=== PATIENT | male | born 1940 | race Caucasian/White ===

== ENCOUNTER 2017-09-06 07:34 | Day surgery (SDC) | payer MEDICARE, OTHER ==
[~2017-09-06 07:34] MED LIST: Cefuroxime 10 MG/ML SYRINGE EYELF SCH; Lidocaine 1% PF 2 ML SDV INJECT SCH; Pilocarpine 4% Ophth Soln 15 ML Bot EYELF SCH
[2017-09-06] MEDS: Polymyxin B/Trimethoprim 10 ML Bottle EYELF SCH ×3 (07:50→09:43)
[2017-09-06] MEDS: Brimonidine 0.2% Ophth Soln 5 ML Bottle EYELF SCH ×3 (07:55→09:43)
--- NOTE | 2017-09-06 07:55 | PCM.PREANE ---
Preanesthetic Assessment - Anesthesia/Transfusion/Family Hx Anesthesia History: Prior Anesthesia Without Reaction Family History of Anesthesia Reaction: No Transfusion History: No Prior Transfusion(s) - Review of Systems General: No Symptoms, Other (high cholesterol) Pulmonary: No Symptoms Cardiovascular: Other (HTN) Gastrointestinal: No Symptoms Neurological: No Symptoms Other: Reports: None - Physical Assessment NPO Status Date: 09/05/17 NPO Status Time: 22:00 Pulse: 62 O2 Sat by Pulse Oximetry: 98 Respiratory Rate: 16 Blood Pressure: 124/62 Weight: 1.179 kg ASA Class: 2 Mental Status: Alert & Oriented x3 Airway Class: Mallampati = 2 Dentition: Reports: Normal Dentition Thyro-Mental Finger Breadths: 3 Mouth Opening Finger Breadths: 3 ROM/Head Extension: Full Lungs: Clear to Auscultation, Normal Respiratory Effort Cardiovascular: Regular Rate, Regular Rhythm - Allergies Allergies/Adverse Reactions: Allergies Allergy/AdvReac Type Severity Reaction Status Date / Time No Known Allergies Allergy Verified 09/05/17 13:47 - Blood Blood Available: No Product(s) Available: None - Anesthesia Plan Pre-Op Medication Ordered: None - Acknowledgements Anesthesia Type Planned: MAC Pt an Appropriate Candidate for the Planned Anesthesia: Yes Alternatives and Risks of Anesthesia Discussed w Pt/Guardian: Yes Pt/Guardian Understands and Agrees with Anesthesia Plan: Yes PreAnesthesia Questionnaire - HOME MEDS Home Medications: Home Meds Allopurinol [Zyloprim] 300 mg PO DAILY 09/05/17 [History] Aspirin [Adult Low Dose Aspirin EC] 81 mg PO DAILY 09/05/17 [History] Enalapril Maleate 5 mg PO DAILY 09/05/17 [History] Pravastatin Sodium [Pravastatin (Pravachol)] 40 mg PO DAILY 09/05/17 [History] amLODIPine Besylate [Amlodipine Besylate] 5 mg PO DAILY 09/05/17 [History] - CURRENT (IN HOUSE) MEDS Current Meds: Current Medications Brimonidine Tartrate (Alphagan 0.2% Oph Soln) 0 ml EYELF ASDIRECTED ERICH Stop: 09/06/17 18:00 Cefuroxime Sodium (Zinacef) 0 mg EYELF ASDIRECTED ERICH Stop: 09/06/17 18:00 Lidocaine HCl (Xylocaine-Mpf 1%) 0 ml INJECT ASDIRECTED ERICH Stop: 09/06/17 18:00 Phenylephrine HCl (Van-Synephrine 2.5% Ophth Soln) 0 ml EYELF ASDIRECTED ERICH Stop: 09/06/17 18:00 Pilocarpine HCl (Pilocar 4% Ophth Soln) 0 ml EYELF ASDIRECTED ERICH Stop: 09/06/17 18:00 Polymyxin/Trimethoprim Sulfate (Polytrim Ophth Soln) 0 ml EYELF ASDIRECTED ERICH Stop: 09/06/17 18:00 Tetracaine HCl (Tetracaine 0.5% Steri-Unit Natali) 0 ml EYELF ASDIRECTED ERICH Stop: 09/06/17 18:00 Tropicamide (Mydriacyl 1% Ophth Soln) 0 ml EYELF ASDIRECTED ERICH Stop: 09/06/17 18:00
[2017-09-06] MEDS: Phenylephrine 2.5% Ophth Soln 2 ML Bot EYELF SCH ×5 (08:00→09:22)
[2017-09-06] MEDS: Tropicamide 1% Ophth Soln 3 ML Bottle EYELF SCH ×4 (08:05→08:59)
[2017-09-06] MEDS: Tetracaine HCl/PF 0.5% 4 ML Bottle EYELF SCH ×2 (09:11→09:30)
--- NOTE | 2017-09-06 09:45 | PCM48HPAN ---
Post Anesthesia Note - EVALUATION WITHIN 48HRS OF ANESTHETIC Vital Signs in Normal Range: Yes Patient Participated in Evaluation: Yes Respiratory Function Stable: Yes Airway Patent: Yes Cardiovascular Function Stable: Yes Hydration Status Stable: Yes Pain Control Satisfactory: Yes Nausea and Vomiting Control Satisfactory: Yes Mental Status Recovered: Yes Pulse Rate: 58 SaO2: 98 Resp Rate: 15 Blood Pressure: 127/69
== END 2017-09-06 09:55 | disposition home or self-care (01) ==
LOC: JD.SDS 07:34
PROVIDERS: ATTEND Ophthalmology
DX: H25.813 Combined forms of age-related cataract, bilateral (principal); I10 Essential (primary) hypertension; E78.00 Pure hypercholesterolemia, unspecified; H35.371 Puckering of macula, right eye; H43.813 Vitreous degeneration, bilateral; H16.223 Keratoconjunctivitis sicca, not specified as Sjogren's, bilateral; H16.103 Unspecified superficial keratitis, bilateral; H02.831 Dermatochalasis of right upper eyelid; H02.834 Dermatochalasis of left upper eyelid; Z87.891 Personal history of nicotine dependence; Z79.82 Long term (current) use of aspirin; Z79.899 Other long term (current) drug therapy
CPT/HCPCS: 66984; C1780; J0697; A9270-GY; J2001

== ENCOUNTER 2017-10-11 09:05 | Day surgery (SDC) | payer MEDICARE, OTHER ==
[~2017-10-11 09:05] MED LIST changes: -Cefuroxime 10 MG/ML SYRINGE EYELF SCH; +Cefuroxime 10 MG/ML SYRINGE EYERT SCH; -Pilocarpine 4% Ophth Soln 15 ML Bot EYELF SCH; +Pilocarpine 4% Ophth Soln 15 ML Bot EYERT SCH
[2017-10-11] MEDS: Polymyxin B/Trimethoprim 10 ML Bottle EYERT SCH ×3 (10:09→11:45)
--- NOTE | 2017-10-11 10:09 | PCM.PREANE ---
Preanesthetic Assessment - Anesthesia/Transfusion/Family Hx Anesthesia History: Prior Anesthesia Without Reaction Transfusion History: No Prior Transfusion(s) - Review of Systems General: No Symptoms Pulmonary: No Symptoms Cardiovascular: No Symptoms Gastrointestinal: No Symptoms Neurological: No Symptoms Other: Reports: None - Physical Assessment NPO Status Date: 10/10/17 NPO Status Time: 21:00 ASA Class: 2 Mental Status: Alert & Oriented x3 Airway Class: Mallampati = 1 Dentition: Reports: Normal Dentition Thyro-Mental Finger Breadths: 3 Mouth Opening Finger Breadths: 3 ROM/Head Extension: Full Lungs: Clear to Auscultation - Allergies Allergies/Adverse Reactions: Allergies Allergy/AdvReac Type Severity Reaction Status Date / Time No Known Allergies Allergy Verified 10/10/17 12:55 - Acknowledgements Anesthesia Type Planned: MAC Pt an Appropriate Candidate for the Planned Anesthesia: Yes Alternatives and Risks of Anesthesia Discussed w Pt/Guardian: Yes Pt/Guardian Understands and Agrees with Anesthesia Plan: Yes PreAnesthesia Questionnaire Cardiovascular History: Reports: High Cholesterol, Hypertension, [place] (>10 years ago, no symptoms, METS>>4) Genitourinary History: Reports: Renal Calculus - Past Surgical History HEENT Surgical History: Reports: Cataract Surgery Cardiovascular Surgical History: Reports: Other (See Below) (Stents) Neurological Surgical History: Reports: Laminectomy, Lumbar Spine, Spinal Fusion - HOME MEDS Home Medications: Home Meds Allopurinol [Zyloprim] 300 mg PO DAILY 09/05/17 [History] Aspirin [Adult Low Dose Aspirin EC] 81 mg PO DAILY 09/05/17 [History] Enalapril Maleate 5 mg PO DAILY 09/05/17 [History] Pravastatin Sodium [Pravastatin (Pravachol)] 40 mg PO DAILY 09/05/17 [History] amLODIPine Besylate [Amlodipine Besylate] 5 mg PO DAILY 09/05/17 [History] - CURRENT (IN HOUSE) MEDS Current Meds: Current Medications Brimonidine Tartrate (Alphagan 0.2% Oph Soln) 0 ml EYERT ASDIRECTED ERICH Stop: 10/11/17 18:00 Cefuroxime Sodium (Zinacef) 0 mg EYERT ASDIRECTED ERICH Stop: 10/11/17 18:00 Lidocaine HCl (Xylocaine-Mpf 1%) 0 ml INJECT ASDIRECTED ERICH Stop: 10/11/17 18:00 Phenylephrine HCl (Van-Synephrine 2.5% Ophth Soln) 0 ml EYERT ASDIRECTED ERICH Stop: 10/11/17 18:00 Pilocarpine HCl (Pilocar 4% Ophth Soln) 0 ml EYERT ASDIRECTED ERICH Stop: 10/11/17 18:00 Polymyxin/Trimethoprim Sulfate (Polytrim Ophth Soln) 0 ml EYERT ASDIRECTED ERICH Stop: 10/11/17 18:00 Tetracaine HCl (Tetracaine 0.5% Steri-Unit Natali) 0 ml EYERT ASDIRECTED ERICH Stop: 10/11/17 18:00 Tropicamide (Mydriacyl 1% Ophth Soln) 0 ml EYERT ASDIRECTED ERICH Stop: 10/11/17 18:00
[2017-10-11] MEDS: Brimonidine 0.2% Ophth Soln 5 ML Bottle EYERT SCH ×3 (10:15→11:45)
[2017-10-11] MEDS: Tropicamide 1% Ophth Soln 15 ML Bottle EYERT SCH ×4 (10:22→11:11)
[2017-10-11] MEDS: Phenylephrine 2.5% Ophth Soln 2 ML Bot EYERT SCH ×5 (10:26→11:30)
[2017-10-11] MEDS: Tetracaine HCl/PF 0.5% 4 ML Bottle EYERT SCH ×2 (11:17→11:42)
== END 2017-10-11 11:58 | disposition home or self-care (01) ==
LOC: JD.SDS 09:05
PROVIDERS: ATTEND Ophthalmology
DX: H25.811 Combined forms of age-related cataract, right eye (principal); H35.371 Puckering of macula, right eye; H02.831 Dermatochalasis of right upper eyelid; H02.834 Dermatochalasis of left upper eyelid; E78.00 Pure hypercholesterolemia, unspecified; I10 Essential (primary) hypertension; I25.2 Old myocardial infarction; Z79.82 Long term (current) use of aspirin; Z79.899 Other long term (current) drug therapy; Z98.42 Cataract extraction status, left eye; Z96.1 Presence of intraocular lens
CPT/HCPCS: 66984; C1780; J0697; A9270-GY; J2001

== ENCOUNTER 2017-11-02 08:25 | Emergency (ER) | payer MEDICARE, OTHER ==
[2017-11-02] MEDS ORDERED: Sodium Chloride 0.9% 10 ML Syringe FLUSH PRN (08:45)
[2017-11-02] MEDS ORDERED: Sodium Chloride 0.9% 1,000 ML IV SCH (08:45)
--- NOTE | 2017-11-02 10:09 | CT ---
CT abdomen and pelvis Technique: Multiple axial sections were obtained from above the dome of the diaphragm inferiorly through the pubic symphysis. Intravenous and oral contrast was not utilized. Comparison: No prior CT abdomen or pelvis exam. Findings: Kidneys show no hydronephrosis. Cyst is seen within the left kidney measuring approximately 2.2 cm. Ureters show no dilatation. No abnormal calcifications are seen along the course of the ureters. Visualized lung bases show nothing acute. Noncontrast appearance of the liver is within normal limits. Spleen also appears within normal limits. Multiple small calcified gallstones seen within the gallbladder. Adrenal glands on the left side show a small nodule measuring about 1.1 cm most likely due to incidental adenoma. Pancreas is within normal limits. Aorta shows atherosclerotic calcification which continues into the iliac vessels without aneurysm. No retroperitoneal adenopathy is seen. No pelvic mass or adenopathy is seen. Radiation implant seeds are noted within the prostate gland. Appendix is seen which is normal in size. Bone window settings were reviewed which shows scattered degenerative change within the spine. No bowel dilatation is seen. Incidental diverticuli are seen within the descending colon without findings of diverticulitis. Impression: 1. No renal calculi, ureteral dilatation or ureteral stone is seen. 2. Appendix is seen and is normal in size. 3. Calcified gallstones. Other incidental findings. Nothing acute is identified on noncontrast CT study of the abdomen and pelvis. Diagnostic code #2
[2017-11-02] MEDS ORDERED: Ketorolac 30 MG/ML SDV IVPUSH ONE (10:28)
[2017-11-02] MEDS ORDERED: HYDROmorphone 0.5 MG/0.5 ML SYRINGE IVPUSH ONE (10:28)
--- NOTE | 2017-11-02 11:38 | EDM.PDOC ---
ED HPI GENERAL MEDICAL PROBLEM - General Chief Complaint: Abdominal Pain Stated Complaint: LOW ABD PAIN AND KIDNEY PAIN Time Seen by Provider: 11/02/17 08:39 Source of Information: Reports: Patient, Family History Limitations: Reports: No Limitations - History of Present Illness INITIAL COMMENTS - FREE TEXT/NARRATIVE: The patient presents with right lower abdominal pain and right lower back pain. The patient has a history of kidney stones. He is concerned this may be another stone. He has no nausea, vomiting, fever, chills, cough, dysuria or hematuria. He has no chest pain or shortness of breath. Onset: Gradual Duration: Day(s): Location: Reports: Abdomen, Back Quality: Reports: Sharp Severity: Severe Improves with: Reports: None Worsens with: Reports: None Associated Symptoms: Denies: Chest Pain, Fever/Chills, Headaches, Nausea/ Vomiting, Shortness of Breath Right Lower Abdominal Pain Score (Numeric/FACES): 6 - Related Data Allergies Allergy/AdvReac Type Severity Reaction Status Date / Time No Known Allergies Allergy Verified 10/10/17 12:55 Home Meds: Home Meds Allopurinol [Zyloprim] 300 mg PO DAILY 09/05/17 [History] Aspirin [Adult Low Dose Aspirin EC] 81 mg PO DAILY 09/05/17 [History] Enalapril Maleate 5 mg PO DAILY 09/05/17 [History] Pravastatin Sodium [Pravastatin (Pravachol)] 40 mg PO DAILY 09/05/17 [History] amLODIPine Besylate [Amlodipine Besylate] 5 mg PO DAILY 09/05/17 [History] Hydrocodone/Acetaminophen [Hydrocodon-Acetaminophen 5-325] 1 - 2 each PO Q6HR PRN #20 tablet 11/02/17 [Rx] Orphenadrine [Norflex] 100 mg PO BID PRN #20 tab 11/02/17 [Rx] Past Medical History Cardiovascular History: Reports: High Cholesterol, Hypertension, [place] Genitourinary History: Reports: Renal Calculus Other Genitourinary History: x30 kidney stones - Past Surgical History HEENT Surgical History: Reports: Cataract Surgery Cardiovascular Surgical History: Reports: Other (See Below) Neurological Surgical History: Reports: Laminectomy, Lumbar Spine, Spinal Fusion Social & Family History - Tobacco Use Smoking Status *Q: Former Smoker Used Tobacco, but Quit: Yes Month/Year Tobacco Last Used: 1969 - Caffeine Use Caffeine Use: Reports: Coffee - Recreational Drug Use Recreational Drug Use: No ED ROS GENERAL - Review of Systems Review Of Systems: See Below Constitutional: Reports: No Symptoms HEENT: Reports: No Symptoms Respiratory: Reports: No Symptoms Cardiovascular: Reports: No Symptoms Endocrine: Reports: No Symptoms GI/Abdominal: Reports: Abdominal Pain. Denies: Diarrhea, Nausea, Vomiting : Reports: No Symptoms Musculoskeletal: Reports: Back Pain Skin: Reports: No Symptoms Neurological: Reports: No Symptoms ED EXAM, GI/ABD - Physical Exam Exam: See Below Exam Limited By: No Limitations General Appearance: Alert, No Apparent Distress Ears: Normal External Exam Nose: Normal Inspection Head: Atraumatic, Normocephalic Neck: Normal Inspection Respiratory/Chest: No Respiratory Distress, Lungs Clear, Normal Breath Sounds Cardiovascular: Regular Rate, Rhythm, No Edema, No Murmur GI/Abdominal Exam: Soft, Non-Tender, No Organomegaly, No Mass Back Exam: No: CVA Tenderness (L), CVA Tenderness (R), Muscle Spasm Extremities: Normal Inspection Course - Vital Signs Last Recorded V/S: Last Vital Signs Temp 97.1 F 11/02/17 08:31 Pulse 62 11/02/17 08:31 Resp 20 11/02/17 08:31 BP 168/89 H 11/02/17 08:31 Pulse Ox 97 11/02/17 08:31 - Orders/Labs/Meds Orders: Active Orders 24 hr Category Date Time Status Peripheral IV Care [RC] . DIRECTED Care 11/02/17 08:45 Active Sodium Chloride 0.9% [Normal Saline] 1,000 ml Med 11/02/17 08:45 Active IV ASDIRECTED Sodium Chloride 0.9% [Saline Flush] Med 11/02/17 08:45 Active 10 ml FLUSH ASDIRECTED PRN Peripheral IV Insertion Adult [OM.PC] Stat Oth 11/02/17 08:45 Ordered Medication Orders Sodium Chloride (Normal Saline) 1,000 mls @ 125 mls/hr IV ASDIRECTED ERICH Last Admin: 11/02/17 08:55 Dose: 125 mls/hr Sodium Chloride (Saline Flush) 10 ml FLUSH ASDIRECTED PRN PRN Reason: Keep Vein Open Last Admin: 11/02/17 08:57 Dose: 10 ml Labs: Laboratory Tests 11/02/17 11/02/17 11/02/17 Range/Units 08:35 08:35 09:21 WBC 9.26 H (4.23-9.07) K/mm3 RBC 5.01 (4.63-6.08) M/mm3 Hgb 15.7 (13.7-17.5) gm/L Hct 46.9 (40.1-51.0) % MCV 93.6 H (79.0-92.2) fl MCH 31.3 (25.7-32.2) pg MCHC 33.5 (32.2-35.5) g/dl RDW Std Deviation 48.6 H (35.1-43.9) fL Plt Count 246 (163-337) K/mm3 MPV 9.8 (9.4-12.3) fl Neut % (Auto) 65.2 (34.0-67.9) % Lymph % (Auto) 24.7 (21.8-53.1) % [place] % (Auto) 8.2 (5.3-12.2) % Eos % (Auto) 1.2 (0.8-7.0) Baso % (Auto) 0.4 (0.1-1.2) % Neut # (Auto) 6.03 H (1.78-5.38) K/mm3 Lymph # (Auto) 2.29 (1.32-3.57) K/mm3 [place] # (Auto) 0.76 (0.30-0.82) K/mm3 Eos # (Auto) 0.11 (0.04-0.54) K/mm3 Baso # (Auto) 0.04 (0.01-0.08) K/mm3 Sodium 141 (136-145) mEq/L Potassium 3.9 (3.5-5.1) mEq/L Chloride 107 (98-107) mEq/L Carbon Dioxide 22 (21-32) mEq/L Anion Gap 15.9 H (5-15) BUN 18 (7-18) mg/dL Creatinine 0.7 (0.7-1.3) mg/dL Est Cr Clr Drug Dosing 98.54 mL/min Estimated GFR (MDRD) > 60 (>60) mL/min BUN/Creatinine Ratio 25.7 H (14-18) Glucose 102 (83-115) mg/dL Calcium 9.0 (8.5-10.1) mg/dL Total Bilirubin 0.7 (0.2-1.0) mg/dL AST 18 (15-37) U/L ALT 18 (16-63) U/L Alkaline Phosphatase 79 (46-116) U/L Total Protein 6.9 (6.4-8.2) g/dl Albumin 3.9 (3.4-5.0) g/dl Globulin 3.0 gm/dL Albumin/Globulin Ratio 1.3 (1-2) Lipase 187 (73-393) U/L Urine Color Yellow (Yellow) Urine Appearance Clear (Clear) Urine pH 6.5 (5.0-8.0) Ur Specific [place] 1.020 (1.005-1.030) Urine Protein Negative (Negative) Urine Glucose (UA) Negative (Negative) Urine Ketones Negative (Negative) Urine Occult Blood Negative (Negative) Urine Nitrite Negative (Negative) Urine Bilirubin Negative (Negative) Urine Urobilinogen 0.2 (0.2-1.0) Ur Leukocyte Esterase Negative (Negative) Urine RBC Not seen (0-5) /hpf Urine WBC 0-5 (0-5) /hpf Ur Epithelial Cells Not seen (0-5) /hpf Urine Bacteria Few (FEW) /hpf Urine Mucus Few (FEW) /hpf Meds: Medications Generic Name Dose Route Start Last Admin Trade Name Frekaushik PRN Reason Stop Dose Admin Sodium Chloride 1,000 mls @ 125 mls/hr 11/02/17 08:45 11/02/17 08:55 Normal Saline IV 125 mls/hr ASDIRECTED ERICH Administration Sodium Chloride 10 ml 11/02/17 08:45 11/02/17 08:57 Saline Flush FLUSH 10 ml ASDIRECTED PRN Administration Keep Vein Open Discontinued Medications Generic Name Dose Route Start Last Admin Trade Name Freq PRN Reason Stop Dose Admin Hydromorphone HCl 0.5 mg 11/02/17 10:28 11/02/17 10:40 Dilaudid IVPUSH 11/02/17 10:29 0.5 mg ONETIME ONE Administration Ketorolac Tromethamine 30 mg 11/02/17 10:28 11/02/17 10:37 Toradol IVPUSH 11/02/17 10:29 30 mg ONETIME ONE Administration - Re-Assessments/Exams Free Text/Narrative Re-Assessment/Exam: 11/02/17 11:38 I ordered an IV, labs, UA and a CT of his abdomen and pelvis without contrast. 11/02/17 11:38 His WBC was elevated at 9.26. His CMP looks good. His lipase was normal. His UA shows no UTI. His CT shows no renal calculi, ureteral dilatation or ureteral stone is seen. Appendix is seen and is normal in size. Calcified gallstones. Other incidental findings. Nothing acute is identifies on noncontrast CT study of the abdomen and pelvis. He still has the pain so ordered toradol and dilaudid for pain. I think this may be coming from his back. I will get him on some norflex and hydrocodone. Departure - Departure Time of Disposition: 11:45 Disposition: Home, Self-Care 01 Condition: Good Clinical Impression: Right low back pain Qualifiers: Chronicity: acute Sciatica presence: without sciatica Qualified Code(s): M54.5 - Low back pain - Discharge Information *PRESCRIPTION DRUG MONITORING PROGRAM REVIEWED*: No *COPY OF PRESCRIPTION DRUG MONITORING REPORT IN PATIENT SILVINA: No Prescriptions: Hydrocodone/Acetaminophen [Hydrocodon-Acetaminophen 5-325] 1 - 2 each PO Q6HR PRN #20 tablet PRN Reason: Pain Orphenadrine [Norflex] 100 mg PO BID PRN #20 tab PRN Reason: Pain Referrals: Amos Casiano MD [Primary Care Provider] - 2 Weeks Additional Instructions: Take an antiiflammatory such as motrin or aleve. Take the hydrocodone and norflex for pain. Follow up with Dr Casiano when you get home. You may need an MRI of your back. - My Orders Last 24 Hours: My Active Orders 11/02/17 08:45 Peripheral IV Care [RC] . DIRECTED Sodium Chloride 0.9% [Normal Saline] 1,000 ml IV ASDIRECTED Sodium Chloride 0.9% [Saline Flush] 10 ml FLUSH ASDIRECTED PRN Peripheral IV Insertion Adult [OM.PC] Stat - Assessment/Plan Last 24 Hours: My Active Orders 11/02/17 08:45 Peripheral IV Care [RC] . DIRECTED Sodium Chloride 0.9% [Normal Saline] 1,000 ml IV ASDIRECTED Sodium Chloride 0.9% [Saline Flush] 10 ml FLUSH ASDIRECTED PRN Peripheral IV Insertion Adult [OM.PC] Stat
== END 2017-11-02 12:00 | disposition home or self-care (01) ==
LOC: JD.ED 08:25
DX: M54.5 Low back pain (principal); Z79.899 Other long term (current) drug therapy; Z87.891 Personal history of nicotine dependence
CPT/HCPCS: 36415; 74176; 80053; 81001; 83690; 85025; 96361; 96374; 96375; 99284; J1170; J1885; J7040; J7050

== ENCOUNTER 2019-01-20 15:28 | Emergency (ER) | payer MEDICARE, OTHER ==
--- NOTE | 2019-01-20 16:12 | EDM.PDOC ---
ED HPI GENERAL MEDICAL PROBLEM - General Chief Complaint: Head Injury Stated Complaint: HEAD INJURY Time Seen by Provider: 01/20/19 16:07 Source of Information: Reports: Patient, Family () History Limitations: Reports: No Limitations - History of Present Illness INITIAL COMMENTS - FREE TEXT/NARRATIVE: 78-year-old male presents the ED in the accompaniment of his . Patient was working outside carried down in a [employer] tree and getting ready department in the garbage when he slipped on snow-covered ice and fell hard to the concrete. Apparently passersby in a vehicle appreciated him falling and attendant him. It's unclear if he lost consciousness for short period of time or not. Patient has amnesia for the event. Answer the door and the passersby had him up and ready to come into the house. They recognize that he is a hematoma to the left occipital scalp. They found his glasses in the snow as well. It's been 2 hours since the time of injury which is about 1400 hrs. today. He complains bitterly of diffuse low cervical neck pain particularly on the right side at C7-T1 level. He has had previous lumbar spine surgery but denies any pain in his lower back both wrists or mid back. No pain in his ribs. At 3:00 he asked his if he had fallen. I.e. continues to have amnesia for the event. Has a headache mild nausea but no vomiting. Onset: Today Onset Date: 01/20/19 Onset Time: 14:00 Duration: Hour(s): Location: Reports: Head, Neck Quality: Reports: Ache, Throbbing Severity: Moderate Improves with: Reports: Rest Worsens with: Reports: Movement Context: Reports: Trauma (Slipped and fell at ground level on snow-covered ice landing hard on his back and striking the back of his head hard on concrete.). Denies: Activity, Exercise (Activity of the neck.), Lifting, Sick Contact Associated Symptoms: Reports: Confusion (Amnesia for the event.), Headaches, Loss of Appetite, Malaise, Other. Denies: Chest Pain, Cough, cough w sputum, Diaphoresis, Fever/Chills Treatments TAKE OFF MAN: Reports: Other (see below) (None so far.) Bilateral Neck Pain Score (Numeric/FACES): 5 - Related Data Allergies Allergy/AdvReac Type Severity Reaction Status Date / Time No Known Allergies Allergy Verified 01/20/19 15:59 Home Meds: Home Meds Allopurinol [Zyloprim] 300 mg PO DAILY 09/05/17 [History] Aspirin [Adult Low Dose Aspirin EC] 81 mg PO DAILY 09/05/17 [History] Enalapril Maleate 5 mg PO DAILY 09/05/17 [History] Pravastatin Sodium [Pravastatin (Pravachol)] 40 mg PO DAILY 09/05/17 [History] amLODIPine Besylate [Amlodipine Besylate] 5 mg PO DAILY 09/05/17 [History] Orphenadrine [Norflex] 100 mg PO BID PRN #20 tab 11/02/17 [Rx] Past Medical History Cardiovascular History: Reports: High Cholesterol, Hypertension, MA Genitourinary History: Reports: Renal Calculus Other Genitourinary History: x30 kidney stones - Past Surgical History HEENT Surgical History: Reports: Cataract Surgery Cardiovascular Surgical History: Reports: Other (See Below) Neurological Surgical History: Reports: Laminectomy, Lumbar Spine, Spinal Fusion Social & Family History - Caffeine Use Caffeine Use: Reports: Coffee - Living Situation & Occupation Living situation: Reports: Occupation: Retired ED [employer] [facility] - Review of Systems Review Of Systems: See Below Constitutional: Reports: Malaise, Weakness, Fatigue, Decreased Appetite. Denies : Fever, Chills HEENT: Reports: Glasses, Hearing Loss (Mild hearing problems.). Denies: Vertigo Respiratory: Reports: Shortness of Breath. Denies: Wheezing, Pleuritic Chest Pain (On exertion at times), Cough Cardiovascular: Reports: Blood Pressure Problem, Dyspnea on Exertion. Denies: Chest Pain, Claudication, Edema, Lightheadedness, Orthopnea (On medication for hypertension) Endocrine: Reports: Fatigue GI/Abdominal: Reports: Nausea (Mild nausea since hitting his head today.) : Reports: Frequency, Other (Nocturia usually 2) Musculoskeletal: Reports: Neck Pain, Back Pain (Chronic low back pain having had surgery 2.). Denies: Hand Pain, Leg Pain, Foot Pain, Joint Pain, Joint Swelling Skin: Reports: No Symptoms Neurological: Reports: Confusion, Headache (Has amnesia for the event or accident today.), Other. Denies: Numbness, Paresthesia, Pre-Existing Deficit, Seizure, Syncope, Tingling, Tremors, Trouble Speaking, Difficulty Walking, Weakness Psychiatric: Reports: No Symptoms Hematologic/Lymphatic: Reports: No Symptoms Immunologic: Reports: No Symptoms ED EXAM, HEAD INJURY - Physical Exam Exam: See Below Exam Limited By: No Limitations General Appearance: Alert, WD/WN, No Apparent Distress, Other (He does answer appropriately and obeys all commands. Vital signs are normal.) Head: Scalp Swelling (Left occipital scalp mid and superior aspect). No: Active Bleeding, Facial Ecchymosis, Facial Lacerations, Facial Swelling, Sinus Tenderness Nexus Criteria: Posterior, Midline Cervical Tenderness. No: Evidence of Intoxication, Altered Level of Consciousness, Focal Neurological Deficit, Painful Distraction Injuries Eyes: Bilateral Eye: Normal Inspection, PERRL Ears: Normal TMs ([place] hot blood behind the tympanic membranes) Nose: Normal Inspection, Other Throat/Mouth: Normal Inspection, Normal Lips, Normal Teeth, Normal Oropharynx, Other (No injuries to his tonsillar temporomandibular joints.) Neck: Normal Alignment, Normal Inspection, Limited Range of Motion, Muscle Spasm (Left and right lower paracervical muscle tenderness.), Paraspinous Muscle Tender (C6 C7 T1 bilaterally laterally), Tenderness. No: Non-Tender, Full Range of Motion, Spinous Processes Tender, Tender Midline Respiratory: No Respiratory Distress, Lungs Clear, Normal Breath Sounds, Decreased Breath Sounds Cardiovascular: Normal Peripheral Pulses, Regular Rate, Rhythm, No Murmur, No Rub GI/Abdominal Exam: Normal Bowel Sounds, Soft, Non-Tender, No Organomegaly Back Exam: Normal Inspection, Full Range of Motion, Other Extremities: Normal Inspection (Well-healed lumbar spine scar.), Normal Range of Motion, Non-Tender, Other (No evidence of injuries to either wrist elbow) Neurologic: No Motor/Sensory Deficits ( but talks or lower extremities.), Alert , Normal Mood/Affect, Oriented x 3 Skin: Normal Color, Warm/Dry - [place] Coma Score Best Eye Response ([place]): (4) Open Spontaneously Best Verbal Response ([place]): (5) Oriented Best Motor Response ([place]): (6) Obeys Commands [place] Total: 15 Course - Vital Signs Last Recorded V/S: Last Vital Signs Temp 36.8 C 01/20/19 16:00 Pulse 78 01/20/19 16:00 Resp 16 01/20/19 16:00 BP 119/70 01/20/19 16:00 Pulse Ox 98 01/20/19 16:00 - Orders/Labs/Meds Orders: Active Orders 24 hr Category Date Time Status Cervical Spine wo Cont [CT] Stat Exams 01/20/19 16:09 Ordered Head wo Cont [CT] Stat Exams 01/20/19 16:07 Taken - Radiology Interpretation Free Text/Narrative:: 78-year-old male presents the ED after slipping and falling from ground-level outside his home at about 1400 hrs. today. He was tearing down a little [employer] tree in getting ready to throat in the garbage when he slipped on ice and fell landing on concrete surface. Apparently passersby in a vehicle on the roadway seen and fall and got out to aid him. Some clear fluids unresponsive for any period of time. He has a hematoma left occipital scalp and complaining of diffuse cervical neck pain particularly right lower neck. He denies pain in any other areas. His reported that at about 1500 hrs. while seated in the house he started asking questions like that " did I fall" --complaining of headache with mild nausea but no vomiting. He is not on any blood thinners. He denies pain in his lower back where he has had previous surgery 2. He does have pain to palpation both sides of his lower cervical spine. Left scalp hematoma mid superior aspect of the left occiput. Plan CT head CT cervical spine to be done. - Re-Assessments/Exams Free Text/Narrative Re-Assessment/Exam: 01/20/19 18:00: CT of the head reveals no intracranial hemorrhage or mass effect. White matter appears to be unremarkable. There is no ventriculomegaly. No skull fractures. Sinuses appear on remarkable. CT of the cervical spine reveals degenerative changes at multiple levels. He has lost his normal lordotic curvature. However alignment is normal with no spinal stenosis no acute fractures are identified. Patient reassured. He is likely going to expense a good deal of increased neck pain over the next 24-48 hours. Last ice pack to the area one half hour out of every 4 hours for the next day or 2. May then use heat. Aleve 2 tablets every 8 hours as needed for relief of pain. He really didn't want anything stronger. I suspect he has suffered a concussion because of amnesia for the event and also a initially asking similar questions to his over and over asked to continue really fall etc. He will be taken" easy for the next 14 days. He is to avoid anything that would demand heavy exertion. Follow-up if needed. Departure - Departure Time of Disposition: 17:59 Disposition: Home, Self-Care 01 Condition: Fair Clinical Impression: Sprain of cervical neck, Concussion injury of brain, Strain of neck muscle Closed head injury with concussion Qualifiers: Encounter type: initial encounter Loss of consciousness presence/duration: without LOC Qualified Code(s): S06.0X0A - Concussion without loss of consciousness, initial encounter - Discharge Information *PRESCRIPTION DRUG MONITORING PROGRAM REVIEWED*: Not Applicable *COPY OF PRESCRIPTION DRUG MONITORING REPORT IN PATIENT SILVINA: Not Applicable Instructions: Head Injury, Adult, [id number], Cervical Sprain, [id number] Referrals: Amos Casiano MD [Primary Care Provider] - Forms: ED Department Discharge Additional Instructions: Evaluation the emergency room today in regards to a fall outside due to snow- covered ice conditions. Patient suffered a direct blow to the back of your head with no proven loss of consciousness. However an hour later you are asking if you had fallen suggesting that you have amnesia for the event which is an indicator for concussion which is a bruise to brain. Diffuse cervical neck pain particularly at the base of your neck on the right side. CT of the brain carried out reveals no obvious intracranial bleeding or mass effect and no skull fractures. Expect to have much more stiffness and soreness in your neck develop over the next 24-48 hours. Also concussion protocol should take precedent in terms that he should not be involved in any activities that increase her blood pressure I nothing strenuous such as shoveling snow etc. for the next 10 days. It is okay to take Tylenol and/or Aleve for pain and headache relief as needed. He would need to return to medical care if you have vomited more than twice in a row or you develop a gradually worsening headache over the next 24-48 hours. Of course other parts in your back elbows and shoulders may become stiff and sore over the next 24-48 hours as well. Pack to the back of your head and neck for one half hour out of every 4 hours tonight and tomorrow may relieve spasm and pain. After 48 hours post injury May use heat packs to the area to relieve pain and inflammation. - My Orders Last 24 Hours: My Active Orders 01/20/19 16:07 Head wo Cont [CT] Stat 01/20/19 16:09 Cervical Spine wo Cont [CT] Stat - Assessment/Plan Last 24 Hours: My Active Orders 01/20/19 16:07 Head wo Cont [CT] Stat 01/20/19 16:09 Cervical Spine wo Cont [CT] Stat
--- NOTE | 2019-01-22 10:17 | CT ---
CT cervical spine Technique: Multiple axial sections were obtained from above C1 inferiorly to the bottom of T2. Reconstructed sagittal and coronal images were reviewed. Comparison: No prior cervical spine imaging. Findings: Degenerative change is noted between the dens and anterior arch of C1. Minimal spondylolisthesis is noted at C3-C4 which is due to degenerative apophyseal change. Degenerative apophyseal change is also noted throughout other levels of the cervical spine. Ligamentum nuchal calcification is present. Mild disc space narrowing at C4-C5. Severe disc space narrowing at C5-C6. Anterior osteophytes are at C3-C4 through T1-T2. Vertebral body heights are maintained. Mild neural foraminal narrowing is noted at C3-C4. Moderate narrowing is noted within the left neural foramen at C4-C5. Mild neural foraminal stenosis is noted bilaterally at C5-C6. Other neural foramina are patent. No bony central canal stenosis is seen. No fracture is identified. Impression: 1. Diffuse degenerative change as noted above. 2. Nothing acute is appreciated on CT study of the cervical spine. Diagnostic code #2 This report was dictated in [place] Standard Time I agree with preliminary report issued by [facility] (ad report finalized on 01/20/19, 6:10 PM Central Time)
--- NOTE | 2019-01-22 10:53 | CT ---
Head CT Technique: Multiple axial sections through the brain were obtained. Intravenous contrast was not utilized. Comparison: No prior intracranial imaging is available. Findings: Ventricles along with basal cisterns and sulci over the convexities are mildly prominent. Mild areas of diminished density is noted within the periventricular white matter which is compatible with small vessel ischemic demyelination change. Atherosclerotic calcification is noted within the carotid siphon. No intracranial hemorrhage or mass effect is seen. Bone window settings were reviewed which show the mastoid sinuses to appear clear. No acute calvarial abnormality is seen. Impression: 1. Mild senescent change. 2. No acute intracranial abnormality is identified. Diagnostic code #2 This report was dictated in [place] Standard Time I agree with preliminary report issued by [facility] ([facility] report finalized on 01/20/19, 6:15 PM Central Time)
== END 2019-01-20 18:13 | disposition home or self-care (01) ==
LOC: JD.ED 15:28
DX: S06.0X0A Concussion without loss of consciousness, initial encounter (principal); S13.4XXA Sprain of ligaments of cervical spine, initial encounter; S16.1XXA Strain of muscle, fascia and tendon at neck level, initial encounter; S00.03XA Contusion of scalp, initial encounter; E78.5 Hyperlipidemia, unspecified; I25.2 Old myocardial infarction; I10 Essential (primary) hypertension; Z79.82 Long term (current) use of aspirin; Z79.899 Other long term (current) drug therapy; W00.0XXA Fall on same level due to ice and snow, initial encounter; Y92.009 Unspecified place in unspecified non-institutional (private) residence as the place of occurrence of the external cause; Y93.89 Activity, other specified
CPT/HCPCS: 70450; 70450-26; 72125; 72125-26; 99283; 99285-25

== ENCOUNTER 2022-02-01 10:02 | Emergency (ER) | payer MEDICARE, OTHER ==
[2022-02-01] MEDS ORDERED: Sodium Chloride 0.9% 10 ML Syringe FLUSH PRN (11:04)
[2022-02-01] MEDS ORDERED: Ondansetron 4 MG/2 ML SDV IVPUSH ONE (11:04)
[2022-02-01] MEDS ORDERED: Sodium Chloride 0.9% 1,000 ML IV SCH (11:15)
[2022-02-01] MEDS ORDERED: Ketorolac 30 MG/ML SDV IVPUSH ONE (11:24)
[2022-02-01] MEDS ORDERED: Sodium Chloride 0.9% 1,000 ML IV ONE (11:24)
[2022-02-01] MEDS ORDERED: fentaNYL 100 MCG/2 ML SDV IVPUSH ONE (12:36)
[2022-02-01] MEDS ORDERED: Tamsulosin 0.4 MG Cap.ER PO ONE (13:04)
== END 2022-02-01 15:30 | disposition home or self-care (01) ==
LOC: JD.ED 10:02
DX: N13.2 Hydronephrosis with renal and ureteral calculous obstruction (principal); E86.0 Dehydration; E78.00 Pure hypercholesterolemia, unspecified; I10 Essential (primary) hypertension; I25.2 Old myocardial infarction; Z79.82 Long term (current) use of aspirin; Z79.899 Other long term (current) drug therapy
CPT/HCPCS: 36415; 74176; 80053; 81001; 85025; 96361; 96374; 96375; 99284; A9270; J1885; J2405; J3010; J3490; J7030